=== PATIENT | male | born 1960 | race Caucasian/White ===

== ENCOUNTER 2022-04-12 20:15 | Emergency (ER) | payer OTHER, SELFPAY ==
[2022-04-12 20:34] VITALS: BP 140/95; PULSE 80; RESP 16; TEMP 36.1; O2SAT 96; BMI 31.5
--- NOTE | 2022-04-12 20:52 | ED.WOUNDLAC ---
HPI - Wound/Laceration General Chief Complaint: Laceration/Wound Stated Complaint: Thumb Lac Time Seen by Provider: 04/12/22 20:16 History of Present Illness HPI narrative: This 62-year-old male comes in with an avulsion of the tip of his right thumb. This occurred this morning about 8 or 12 hours prior to arrival. He comes in because it is persistently oozing blood. He states that his tetanus was done about 8 years ago. He does not have any other injury. He is not on blood thinners. Related Data Home Medications Medication Instructions Recorded Confirmed aspirin 81 mg tablet,delayed 81 mg PO DAILY 04/12/22 04/12/22 release (Enteric Coated Aspirin) clonidine HCl 0.1 mg tablet 0.1 mg PO BID 04/12/22 04/12/22 dapagliflozin 10 mg tablet 10 mg PO DAILY 04/12/22 04/12/22 (Farxiga) hydrochlorothiazide 25 mg tablet 25 mg PO DAILY 04/12/22 04/12/22 lisinopril 40 mg tablet 40 mg PO DAILY 04/12/22 04/12/22 metformin 500 mg tablet 500 mg PO BID 04/12/22 04/12/22 metoprolol tartrate 100 mg tablet 100 mg PO BID 04/12/22 04/12/22 (Lopressor) semaglutide 0.25 mg or 0.5 mg (2 0.25 mg subcut QWEEK 04/12/22 04/12/22 mg/1.5 mL) subcutaneous pen injector (Ozempic) sildenafil (pulm.hypertension) 20 20 mg PO TID 04/12/22 04/12/22 mg tablet (Revatio) simvastatin 40 mg tablet 40 mg PO QHS 04/12/22 04/12/22 Allergies Allergy/AdvReac Type Severity Reaction Status Date / Time No Known Drug Allergies Allergy Verified 04/12/22 20:42 Review of Systems Status of ROS: Reports: 10 or more systems reviewed and unremarkable except as noted in History and below Narrative: Constitutional: No fevers, no weight gain or loss. Eyes: No discharge. No vision changes. HENT: No congestion, no sore throat, no ear pain. Cardiovascular: No chest pain, no palpitations. Respiratory: No shortness of breath, no wheezes, no cough. Gastrointestinal: No abdominal pain, no vomiting, no diarrhea. Genitourinary: No dysuria, no hematuria. Musculoskeletal: Normal range of motion. Skin: No rashes, no pruritis. Neurological: No dizziness, weakness, sensory change, speech change. Endo/Heme/Allergies: No bruising or bleeding. No polydipsia. Pysch: no suicidality, no anxiety, no insomnia. All other systems reviewed and are negative. [facility] Medical History (Updated 04/12/22 @ 20:56 by Mango Diaz MD) Body mass index [BMI] 34.0-34.9, adult Essential (primary) hypertension Foot fracture, right Hyperlipidemia, unspecified Male erectile dysfunction, unspecified Renal stones Type 2 diabetes mellitus without complications Surgical History (Updated 04/12/22 @ 20:45 by Kimberly Peace RN) S/P epigastric hernia repair, follow-up exam Exam Narrative: Exam Narrative: Constitutional: Well-developed, well-nourished, no acute distress. HEENT: Normocephalic, atraumatic. Neck: Normal range of motion. Nontender. Supple. Heart: Intact distal pulses. Lungs: No chest discomfort. No wheezes, rhonchi, or rales. Abdomen: Nontender. Back: Normal range of motion. Extremities: Normal range of motion. The distal tip of the right thumb has an avulsion injury of the skin only that measures approximately 1 cm by 0.3 cm. There is slow oozing of blood from the wound. Skin: Intact. No rash. Warm. No erythema or pallor. Neurologic: No altered sensation. No weakness. Alert and oriented. Psychiatric: No suicidality. No anxiety or depression. No insomnia. Nursing notes and vitals signs are reviewed. Const: Vital Signs, click to edit/add: Vital Signs - 24 hr 04/12/22 20:34 Temperature 97.0 F L Pulse Rate [Left P ulse Oximeter] 80 Respiratory Rate 16 Blood Pressure [Le ft Upper Arm] 140/95 H Pulse Oximetry 96 Oxygen Delivery Me thod Room Air Course Vital Signs Vital signs: Initial Vital Signs Temperature 97.0 F L 04/12/22 20:34 Temperature Source Temporal Artery Scan 04/12/22 20:34 Pulse Rate 80 04/12/22 20:34 Pulse Rhythm 04/12/22 20:34 Respiratory Rate 16 04/12/22 20:34 Blood Pressure 140/95 H 04/12/22 20:34 Blood Pressure Mean 110 04/12/22 20:34 Blood Pressure Position Sitting 04/12/22 20:34 Pulse Oximetry 96 04/12/22 20:34 Oxygen Delivery Method 04/12/22 20:34 Vital Signs Temperature 97.0 F L 04/12/22 20:34 Pulse Rate 80 04/12/22 20:34 Respiratory Rate 16 04/12/22 20:34 Blood Pressure 140/95 H 04/12/22 20:34 Pulse Oximetry 96 04/12/22 20:34 Oxygen Delivery Method 04/12/22 20:34 Temperature 97.0 F L 04/12/22 20:34 Pulse Rate 80 04/12/22 20:34 Respiratory Rate 16 04/12/22 20:34 Blood Pressure 140/95 H 04/12/22 20:34 Pulse Oximetry 96 04/12/22 20:34 Oxygen Delivery Method 04/12/22 20:34 MDM - Wound/Laceration MDM Narrative Medical decision making narrative: This patient comes in with an avulsion injury of the skin of the right thumb. Suture repair is really not indicated for this type of wound. I did use a finger exsanguinated her to create a bloodless field of the area of the wound. A cleanse the wound and applied Dermabond to seal the wound and stop bleeding. Band-Aids were applied once the Dermabond had dried. The exsanguinated her was removed and there was no sign of ongoing bleeding. Instructions were given regarding wound care. I offered to update is tetanus vaccination. The patient declined this and stated that he would attend to this at his next regular doctors appointment next month. Discharge Plan Discharge Clinical Impression: Avulsion of skin Patient Disposition: Home, Self-Care Condition: Stable Additional Instructions: Keep wound clean and dry. Follow up with MD or return if worsening. [facility]
== END 2022-04-12 21:04 | disposition home or self-care (01) ==
PROVIDERS: Emergency Provider Emergency Medicine Emergency Medical Services
DX: S61.101A Unspecified open wound of right thumb with damage to nail, initial encounter (principal); Y99.0 Civilian activity done for income or pay
CPT/HCPCS: 12001; 99283